=== PATIENT | male | born 1980 | race African-American/Black ===

== ENCOUNTER 2021-04-09 10:19 | Emergency (ER) | payer BC ==
[2021-04-09 10:26] VITALS: BP 127/82; PULSE 73; TEMP 98; BMI 26.5
== END 2021-04-09 11:10 | disposition home or self-care (01) ==
LOC: JERFT 10:19
DX: S00.452A Superficial foreign body of left ear, initial encounter (principal)
CPT/HCPCS: 99283-25

== ENCOUNTER 2021-06-30 08:14 | Emergency (ER) | payer BC ==
[2021-06-30 08:32] VITALS: BP 142/82; PULSE 91; TEMP 98.5; BMI 28.7
== END 2021-06-30 10:00 | disposition home or self-care (01) ==
LOC: JER 08:14
DX: L02.219 Cutaneous abscess of trunk, unspecified (principal)
CPT/HCPCS: 87070; 87186; 87205; 99283-25

== ENCOUNTER 2021-07-02 08:36 | Emergency (ER) | payer BC ==
[2021-07-02 08:47] VITALS: BP 121/80; PULSE 68; TEMP 97; BMI 28.7
== END 2021-07-02 09:12 | disposition home or self-care (01) ==
LOC: JER 08:36
DX: L02.211 Cutaneous abscess of abdominal wall (principal); Z48.01 Encounter for change or removal of surgical wound dressing
CPT/HCPCS: 99281-25

== ENCOUNTER 2021-08-14 09:49 | Emergency (ER) | payer BC ==
[2021-08-14 09:58] VITALS: BP 152/82; PULSE 85; TEMP 98.4; BMI 28.7
== END 2021-08-14 12:14 | disposition home or self-care (01) ==
LOC: JERFT 09:49
DX: R20.0 Anesthesia of skin (principal); M79.672 Pain in left foot
CPT/HCPCS: 73630-TC-LT; 82962; 99284-25

== ENCOUNTER 2021-09-09 19:07 | Emergency (ER) | payer BC ==
[2021-09-09 19:14] VITALS: TEMP 98.3; BMI 31.5
[2021-09-09] MEDS ORDERED: METHOCARBAMOL 500 MG TABLET PO ONE (20:37)
[2021-09-09] MEDS ORDERED: KETOROLAC TROMETHAMINE 30 MG/1 ML VIAL IM ONE (20:37)
[2021-09-09] MEDS ORDERED: METHOCARBAMOL 500 MG TABLET ONE (20:45)
[2021-09-09] MEDS ORDERED: KETOROLAC TROMETHAMINE 30 MG/1 ML VIAL ONE (20:45)
[2021-09-09 21:07] VITALS: BP 134/83; PULSE 89
== END 2021-09-09 21:27 | disposition home or self-care (01) ==
LOC: JER 19:07
PROC: 0RSJXZZ Reposition Right Shoulder Joint, External Approach (ICD-10-PCS; principal; 2021-09-09)
PROC: 3E0233Z Introduction of Anti-inflammatory into Muscle, Percutaneous Approach (ICD-10-PCS; 2021-09-09)
DX: S43.004A Unspecified dislocation of right shoulder joint, initial encounter (principal); W01.0XXA Fall on same level from slipping, tripping and stumbling without subsequent striking against object, initial encounter; Y08.89XA Assault by other specified means, initial encounter; Y93.02 Activity, running
CPT/HCPCS: 73030-TC-RT-FY; 73523-TC-FY; 73562-TC-RT-FY; 99285-25

== ENCOUNTER 2022-02-19 18:07 | Emergency (ER) | payer BC ==
[2022-02-19 18:23] VITALS: BP 122/82; PULSE 78; TEMP 98.3; BMI 27.2
== END 2022-02-19 18:55 | disposition home or self-care (01) ==
LOC: JERFT 18:07
DX: T16.2XXA Foreign body in left ear, initial encounter (principal)
CPT/HCPCS: 99281-25

== ENCOUNTER 2022-07-30 04:24 | Day surgery (SDC) | payer BC ==
[2022-07-26 11:53] VITALS: BMI 27.2
[2022-07-30 11:24] VITALS: RESP 20
[2022-07-30] MEDS ORDERED: KETOROLAC TROMETHAMINE 30 MG/1 ML VIAL ONE (13:22)
[2022-07-30] MEDS ORDERED: ONDANSETRON 4 MG/2 ML VIAL ONE (13:22)
[2022-07-30 14:41] VITALS: BP 137/79; PULSE 70; TEMP 97.5
[2022-07-30] MEDS ORDERED: ONDANSETRON 4 MG/2 ML VIAL IVPUSH PRN (15:45)
[2022-07-30] MEDS ORDERED: LACTATED RINGERS SOLUTION 1,000 ML IV SCH (15:45)
[2022-07-30] MEDS ORDERED: ACETAMINOPHEN 325 MG TABLET (FP) PO PRN (15:45)
== END 2022-07-30 14:52 | disposition home or self-care (01) ==
LOC: JASU-SURG 04:24
PROVIDERS: ATTEND Urology
PROC: 0TF4XZZ Fragmentation in Left Kidney Pelvis, External Approach (ICD-10-PCS; principal; 2022-07-30 13:30)
DX: N20.0 Calculus of kidney (principal)